=== PATIENT | female | born 1960 | race Caucasian/White ===

== ENCOUNTER 2017-07-14 17:25 | Emergency (ER) | payer BC ==
--- OUTSIDE RECORDS SUMMARY | 2017-07-14 18:06 | XMS REPORT | Summary of Care ---
:1960 Author Organization [facility] Address [address] [place] [address] Care Team Providers Name Role Phone Hitesh Martines Primary Care Physician Encounter Date(s): 06/03/17 - 06/03/17 [facility] [address], [address] [place], [place] [address] Discharge Disposition: 01 Discharged to Home or Self Care Attending Physician: Jeffery Mathis MD Referring Physician: Jeffery Mathis MD Vital Signs Most recent to oldest [Reference Range]: 1 Peripheral Pulse Rate [60-100 bpm] 82 bpm (06/03/17 2:38 PM) Blood Pressure [90-130/60-90 mmHg] 127/79mmHg (06/03/17 2:38 PM) Mean Arterial Pressure, Cuff 95 mmHg (06/03/17 2:38 PM) Most recent to oldest [Reference Range]: 1 Height/Length Estimated 150 cm (06/03/17 2:38 PM) Weight Estimated 58 kg (06/03/17 2:38 PM) BSA Estimated 1.55 m2 (06/03/17 2:38 PM) Body Mass Index Estimated 25.78 kg/m2 (06/03/17 2:38 PM) Problem List No data available for this section Allergies, Adverse Reactions, Alerts Substance Reaction Severity Status Augmentin rash Active oxyCODONE rash Active Relafen rash Active Medications clindamycin 300 mg oral capsule 1 cap(s), Oral, BID, # 20 cap(s), 0 Refill(s), Start Date: 01/21/16 16:20:00 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 , Pharmacy: [facility] Start Date: 01/21/16 Stop Date: 03/30/17 Status: CompletedDiflucan 200 mg oral tablet 1 tab(s), Oral, Daily, # 1 tab(s), 0 Refill(s), Start Date: 01/21/16 16:19:00 PILL COATER, [facility] Start Date: 01/21/16 Stop Date: 03/30/17 Status: Completedibuprofen 200 mg oral capsule 2 cap(s), Oral, q4hr, PRN for fever, # 120 cap(s), 0 Refill(s), Start Date: 16:27:00 CDT Start Date: 05/21/17 Status: Orderednystatin 100,000 units/mL oral suspension 5 mL, Oral, QID, swish and swallow, # 140 mL, 0 Refill(s), Start Date: 01/21/16 16:19:00 PILL COATER, Pharmacy: [facility] Special Instructions: swish and swallow Start Date: 01/21/16 Stop Date: 03/30/17 Status: CompletedPennsaid 2% topical solution 2 pump, Topical, BID, Please call patient @ [phone] wash hands before and after application, # 112 gm, 0 Refill(s), Start Date: 04/03/17 15:45:28 CDT , Pharmacy: [facility] [place], [place] Special Instructions: Please call patient @ [phone] wash hands before and after application Start Date: 04/03/17 Status: OrderedPennsaid 2% topical solution 2 pump, Topical, BID, Please call patient @ [phone] wash hands before and after application, # 112 gm, 0 Refill(s), Start Date: 04/02/17 16:57:00 CDT , Pharmacy: [facility] [place], [place] Special Instructions: Please call patient @ [phone] wash hands before and after application Start Date: 04/02/17 Stop Date: 04/03/17 Status: CompletedSuprep Bowel Prep Kit oral liquid 1 kit(s), Oral, ONETIME, # 1 kit(s), 0 Refill(s), Start Date: 05/22/17 11:53:00 CDT, Pharmacy: [id number] Start Date: 05/22/17 Status: OrderedTylenol 325 mg oral capsule 2 cap(s), Oral, TID, PRN, 0 Refill(s), Start Date: 05/21/17 16:27:00 CDT Special Instructions: PRN Start Date: 05/21/17 Status: OrderedZyrTEC 10 mg oral tablet 1 tab(s), Oral, Daily, # 30 tab(s), 0 Refill(s), Start Date: 05/21/17 16:27:00 CDT Start Date: 05/21/17 Status: Ordered Results No data available for this section Immunizations No data available for this section Procedures Procedure Date Related Diagnosis Body Site Hysterectomy Tonsillectomy Social History No data available for this section Assessment and Plan No data available for this section
--- OUTSIDE RECORDS SUMMARY | 2017-07-14 18:06 | XMS REPORT | Summary of Care ---
:1960 Author Organization [facility] Address [address] [place] [address] [address] [place] [address] Care Team Providers Name Role Phone Hitesh Martines Primary Care Physician Encounter Date(s): 05/21/17 - 05/21/17 [facility] [address] [place] [address] [address] [place] [address]- Discharge Diagnosis: Diarrhea Discharge Diagnosis: Nausea Discharge Diagnosis: Vomiting Discharge Diagnosis: Family history of colon cancer Discharge Diagnosis: Change in bowel habit Discharge Disposition: 01 Discharged to Home or Self Care Attending Physician: Varghese Vazquez DO Referring Physician: Varghese Vazquez DO Vital Signs Most recent to oldest [Reference Range]: 1 Peripheral Pulse Rate [60-100 bpm] 73 bpm (05/21/17 4:25 PM) Blood Pressure [90-130/60-90 mmHg] 111/69mmHg (05/21/17 4:25 PM) Mean Arterial Pressure, Cuff 83 mmHg (05/21/17 4:25 PM) Most recent to oldest [Reference Range]: 1 Height/Length Measured 150 cm (05/21/17 4:25 PM) Height/Length Estimated 150 cm (05/21/17 4:25 PM) Weight Estimated 58.6 kg (05/21/17 4:25 PM) Weight Dosing 58.6 kg (05/21/17 4:25 PM) Weight Measured 58.6 kg (05/21/17 4:25 PM) BSA Measured 1.53 m2 (05/21/17 4:25 PM) BSA Estimated 1.56 m2 (05/21/17 4:25 PM) Body Mass Index Measured 26.04 kg/m2 (05/21/17 4:25 PM) Body Mass Index Estimated 26.04 kg/m2 (05/21/17 4:25 PM) Problem List No data available for this section Allergies, Adverse Reactions, Alerts Substance Reaction Severity Status Augmentin rash Active oxyCODONE rash Active Relafen rash Active Medications clindamycin 300 mg oral capsule 1 cap(s), Oral, BID, # 20 cap(s), 0 Refill(s), Start Date: 01/21/16 16:20:00 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 Special Instructions: swish and swallow Start Date: 01/21/16 Stop Date: 03/30/17 Status: CompletedPennsaid 2% topical solution 2 pump, Topical, BID, Please call patient @ [phone] wash hands before and after application, # 112 gm, 0 Refill(s), Start Date: 04/03/17 15:45:28 CDT , Pharmacy: [facility], [place], [place] Special Instructions: Please call patient @ [phone] wash hands before and after application Start Date: 04/03/17 Status: OrderedPennsaid 2% topical solution 2 pump, Topical, BID, Please call patient @ [phone] wash hands before and after application, # 112 gm, 0 Refill(s), Start Date: 04/02/17 16:57:00 CDT , Pharmacy: [facility], [place], [place] Special Instructions: Please call patient @ [phone] wash hands before and after application Start Date: 04/02/17 Stop Date: 04/03/17 Status: CompletedTylenol 325 mg oral capsule 2 cap(s), Oral, [...]
--- OUTSIDE RECORDS SUMMARY | 2017-07-14 18:07 | XMS REPORT | Summary of Care ---
:1960 Author Organization [facility] Address [address] [place] [address] Care Team Providers Name Role Phone Hitesh Martines Primary Care Physician Encounter Date(s): 03/30/17 - 03/30/17 [facility] [address], [address] [place], [place] [address] Discharge Diagnosis: Posterior tibial tendinitis of left leg Discharge Disposition: 01 Discharged to Home or Self Care Attending Physician: Jeffery Mathis MD Referring Physician: Jeffery Mathis MD Vital Signs Most recent to oldest [Reference Range]: 1 Peripheral Pulse Rate [60-100 bpm] 81 bpm (03/30/17 3:10 PM) Blood Pressure [90-130/60-90 mmHg] 125/72mmHg (03/30/17 3:10 PM) Mean Arterial Pressure, Cuff 90 mmHg (03/30/17 3:10 PM) Most recent to oldest [Reference Range]: 1 Height/Length Estimated 150 cm (03/30/17 3:10 PM) Weight Estimated 57 kg (03/30/17 3:10 PM) BSA Estimated 1.54 m2 (03/30/17 3:10 PM) Body Mass Index Estimated 25.33 kg/m2 (03/30/17 3:10 PM) Problem List No data available for this section Allergies, Adverse Reactions, Alerts Substance Reaction Severity Status Augmentin rash Active oxyCODONE rash Active Relafen rash Active Medications clindamycin 300 mg oral capsule 1 cap(s), Oral, BID, # 20 cap(s), 0 Refill(s), Start Date: 01/21/16 16:20:00 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 Special Instructions: swish and swallow Start Date: 01/21/16 Stop Date: 03/30/17 Status: Completed Results No data available for this section Immunizations No data available for this section Procedures No data available for this section Social History No data available for this section Assessment and Plan No data available for this section
--- OUTSIDE RECORDS SUMMARY | 2017-07-14 18:07 | XMS REPORT | Summary of Care ---
:1960 Author Organization [facility] Care Team Providers Name Role Phone Hitesh Martines Primary Care Physician Encounter Date(s): 06/01/17 - 06/01/17 [place] [id number] Discharge Disposition: 01 Discharged to Home or Self Care Attending Physician: Varghese Vazquez DO Admitting Physician: Varghese Vazquez DO Vital Signs No data available for this section Problem List No data available for this section Allergies, Adverse Reactions, Alerts Substance Reaction Severity Status Augmentin rash Active oxyCODONE rash Active Relafen rash Active Medications clindamycin 300 mg oral capsule 1 cap(s), Oral, BID, # 20 cap(s), 0 Refill(s), Start Date: 01/21/16 16:20:00 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 , 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: [facility] Start Date: 01/21/16 Stop Date: 03/30/17 Status: CompletedDiflucan 200 mg oral tablet 1 tab(s), Oral, Daily, # 1 tab(s), 0 Refill(s), Start Date: 01/21/16 16:19:00 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, Pharmacy: [facility] Start Date: 01/21/16 Stop Date: 03/30/17 Status: Completedibuprofen 200 mg oral capsule 2 cap(s), Oral, q4hr, PRN for fever, # 120 cap(s), 0 Refill(s), Start Date: 16:27:00 CDT Start Date: 05/21/17 Status: Orderednystatin 100,000 units/mL oral suspension 5 mL, Oral, QID, swish and swallow, # 140 mL, 0 Refill(s), Start Date: 01/21/16 16:19:00 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, Pharmacy: [facility] Special Instructions: swish and swallow Start Date: 01/21/16 Stop Date: 03/30/17 Status: CompletedPennsaid 2% topical solution 2 pump, Topical, BID, Please call patient @ [phone] wash hands before and after application, # 112 gm, 0 Refill(s), Start Date: 04/03/17 15:45:28 CDT , [place] [facility] Special Instructions: Please call patient @ [phone] wash hands before and after application Start Date: 04/03/17 Status: OrderedPennsaid 2% topical solution 2 pump, Topical, BID, Please call patient @ [phone] wash hands before and after application, # 112 gm, 0 Refill(s), Start Date: 04/02/17 16:57:00 CDT , Pharmacy: [facility] [place] [facility] Special Instructions: Please call patient @ [phone] wash hands before and after application Start Date: 04/02/17 Stop Date: 04/03/17 Status: CompletedSuprep Bowel Prep Kit oral liquid 1 kit(s), Oral, ONETIME, # 1 kit(s), 0 Refill(s), Start Date: 05/22/17 11:53:00 CDT, Pharmacy: [id number] Start Date: 05/22/17 Status: OrderedTylenol 325 mg oral capsule 2 cap(s), Oral, TID, PRN, 0 Refill(s), Start Date: 05/21/17 16:27:00 CDT Special Instructions: PRN Start Date: 05/21/17 Status: OrderedZyrTEC 10 mg oral tablet 1 tab(s), Oral, Daily, # 30 tab(s), 0 Refill(s), Start Date: 05/21/17 16:27:00 CDT Start Date: 05/21/17 Status: Ordered Results Patient Viewable Results Most recent to oldest [Reference Range]: 1 WBC [4.8-10.8 thou/mm3] 8.7 thou/mm3 (06/01/17 1:21 PM) RBC [4.20-5.40 Mil/mm3] 5.21 Mil/mm3 (06/01/17 1:21 PM) Hgb [12.0-16.0 g/dL] 15.3 g/dL (06/01/17 1:21 PM) Hct [37.0-47.0 %] 45.5 % (06/01/17 1:21 PM) MCV [80.0-94.0 fL] 87.3 fL (06/01/17 1:21 PM) MCH [25.0-38.0 pg/cell] 29.4 pg/cell (06/01/17 1:21 PM) MCHC [31.0-37.0 g/dL] 33.6 g/dL (06/01/17 1:21 PM) RDW [1.0-48.0 fL] 41.1 fL (06/01/17 1:21 PM) Platelet [130-400 thou/mm3] 245 thou/mm3 (06/01/17 1:21 PM) Neutrophils % Auto [50.0-75.0 %] 64.3 % (06/01/17 1:21 PM) Immature Granulocyte Auto [0.1-2.0 %] 0.1 % (06/01/17 1:21 PM) Lymphocytes % Auto [15.0-41.0 %] 27.7 % (06/01/17 1:21 PM) Monocytes % Auto [2.0-10.0 %] 6.8 % (06/01/17 1:21 PM) Eosinophils % Auto [0.0-6.0 %] 0.9 % (06/01/17 1:21 PM) Basophil % Auto [0.0-1.0 %] 0.2 % (06/01/17 1:21 PM) Neutrophils Absolute [1.5-5.9 thou/mm3] 5.6 thou/mm3 (06/01/17 1:21 PM) Immature Gran Absolute [0.01-0.03 thou/mm3] 0.01 thou/mm3 (06/01/17 1:21 PM) Lymphocytes Absolute [1.5-4.0 thou/mm3] 2.4 thou/mm3 (06/01/17 1:21 PM) Monocytes Absolute [0.0-0.9 thou/mm3] 0.6 thou/mm3 (06/01/17 1:21 PM) Eosinophil Absolute [0.0-0.7 thou/mm3] 0.1 thou/mm3 (06/01/17 1:21 PM) Basophil Absolute [0.0-0.2 thou/mm3] 0.0 thou/mm3 (06/01/17 1:21 PM) Sodium Lvl [135-144 mEq/L] 143 mEq/L (06/01/17 1:21 PM) Potassium Lvl [3.3-4.8 mEq/L] 4.2 mEq/L (06/01/17 1:21 PM) Chloride Lvl [98-107 mEq/L] 104 mEq/L (06/01/17 1:21 PM) Bicarbonate Lvl [22-30 mmol/L] 27 mmol/L (06/01/17 1:21 PM) Anion Gap [10.0-20.0] 16.2 (06/01/17 1:21 PM) Glucose Lvl [70-108 mg/dL] 92 mg/dL (06/01/17 1:21 PM) BUN [7-21 mg/dL] 9 mg/dL (06/01/17 1:21 PM) Creatinine Lvl [0.50-1.20 mg/dL] 0.62 mg/dL (06/01/17 1:21 PM) BUN/Creat Ratio 14.5 *NA* (06/01/17 1:21 PM) eGFR AA [>=60] >60 (06/01/17 1:21 PM) eGFR FRANCISCO [>=60] >60 (06/01/17 1:21 PM) Calcium Lvl [8.6-10.2 mg/dL] 9.3 mg/dL (06/01/17 1:21 PM) Total Protein [6.4-8.3 g/dL] 6.8 g/dL (06/01/17 1:21 PM) Albumin Lvl [3.5-5.2 g/dL] 4.3 g/dL (06/01/17 1:21 PM) Globulin 2.5 *NA* (06/01/17 1:21 PM) A/G Ratio [0.9-1.8] 1.7 (06/01/17 1:21 PM) Bilirubin Total [0.1-1.0 mg/dL] 0.4 mg/dL (06/01/17 1:21 PM) Alkaline Phosphatase [39-129 unit/L] 105 unit/L (06/01/17 1:21 PM) AST [0-39 unit/L] 15 unit/L (06/01/17 1:21 PM) ALT [0-40 unit/L] 13 unit/L (06/01/17 1:21 PM) Lipase Lvl [13-60 unit/L] 33 unit/L (06/01/17 1:21 PM) C Reactive Protein [0.0-0.4 mg/dL] 0.1 mg/dL (06/01/17 1:21 PM) Estimated Creatinine Clearance 80.95 mL/min (06/01/17 1:55 PM) Immunizations No data available for this section Procedures Procedure Date Related Diagnosis Body Site Hysterectomy Tonsillectomy Social History No data available for this section Assessment and Plan No data available for this section
[2017-07-14] MEDS ORDERED: SUCRALFATE 1 G/10 ML UDC PO ONE (18:08)
[2017-07-14] MEDS ORDERED: LIDOCAINE HCL 20 ML UDC PO ONE (18:08)
[2017-07-14] MEDS ORDERED: MAG HYDROX/ALUMINUM HYD/SIMETH 30 ML UDC PO ONE (18:08)
[2017-07-14 18:18] LABS: Hematocrit 44.5 % (37.0-47.0); Hemoglobin 14.8 gm/dL (12.5-16.0); Mean Cell Volume 86.2 fl (78-100); Mean Corpuscular Hemoglobin 28.7 pg (27-31); Mean Corpuscular Hgb Conc 33.3 g/dl (32-36); Mean Platelet Volume 10.7 fl (6.0-9.5); Neutrophil # 8.8 K/mm3 (1.3-6.0); Neutrophil % 68.6 % (42-75.0); Platelet Count 275 K/mm3 (150-450); Red Blood Count 5.16 M/mm3 (4.2-5.4); Red Cell Distribution Width 12.2 % (11.5-14.0); White Blood Count 12.8 K/mm3 (4.0-10.5)
--- NOTE | 2017-07-14 18:21 | ERNOTE ---
Medical Problem HPI - Narrative Date of Service: 07/14/17 - General Chief Complaint: Nausea/Vomiting Time Seen by Provider: 07/14/17 17:46 Source: patient Exam Limitations: no limitations - Immun/Allergies/Home Medications Immunizations: IMMUNIZATION HX Immunizations Up to Date No History of Influenza Vaccine No Hx Pneumococcal Vaccination Yes Allergies/Adverse Reactions: Allergies adhesive Allergy (Mild, Verified 07/14/17 17:43) INFLAMMATION, IRRITATION latex Allergy (Mild, Verified 07/14/17 17:43) INFLAMMATION, IRRITATION nabumetone [From Relafen] Allergy (Mild, Verified 07/14/17 17:43) Hives amoxicillin [Amoxicillin] Adverse Reaction (Mild, Verified 07/14/17 17:43) GASTRIC PAIN oxycodone [Oxycodone] Adverse Reaction (Mild, Verified 07/14/17 17:43) Itching Home Medications: HOME MEDICATIONS Cholecalciferol (Vitamin D3) [Vitamin D-3] 2,000 unit PO DAILY 02/19/15 [Last Taken Unknown] EPINEPHrine [Epipen] 0.3 mg IM ONCE PRN 02/19/15 [Last Taken Unknown] Dicyclomine HCl [Bentyl] 10 mg PO TID #30 capsule 07/14/17 [Last Taken Unknown] Ondansetron [Zofran Odt] 4 mg PO Q6H PRN #20 tab 07/14/17 [Last Taken Unknown] Pravastatin Sodium 40 mg PO DAILY 07/14/17 [Last Taken Unknown] - History of Present History Narrative: Pt. comes in with c/o nausea and bloating for 3 days. Pt. states that she also had diarrhea for two days but it is improved now. Pt. denies any SOB, CP, fever but does state that this started after she and her ate wolof food on Thursday. Pt. denies any alleviating or aggravating factors despite taking pepto bismol. Review of Systems - Review of Systems Constitutional: Present: no symptoms reported. Absent: recent illness, fever, chills, weakness, fatigue, malaise EYE: Present: no symptoms reported ENT: Present: no symptoms reported Respiratory: Present: no symptoms reported. Absent: shortness of breath, cough , wheezing Cardiology: Present: no symptoms reported. Absent: chest pain, palpitations, edema Gastrointestinal/Abdominal: Present: nausea, abdominal pain - diffuse bloating pain. Absent: vomiting, diarrhea, constipation Genitourinary: Present: no symptoms reported Musculoskeletal: Present: no symptoms reported. Absent: back pain, joint pain Skin: Present: no symptoms reported. Absent: rash, change in color Neurological: Present: no symptoms reported. Absent: headache, dizziness/light- headedness, numbness, tingling All Other Systems: All systems neg except as marked - Patient's Past Medical History Patient History - Medical: No pertinent hx Patient History - Cardiac/Respiratory: COPD Patient History - Cancer: No Hx of Cancer, Other Patient History - Surgical Procedures: Hysterectomy, T & A, Other Patient History - Other: None LMP (females 10-50): 2007 - Social History Living Situations: home Psych History: No pertinent hx Smoking Status: Never smoker Alcohol Use: none Drug Use: none - Immunizations Immunizations Up to Date: No Hx Pneumococcal Vaccination: Yes History of Influenza Vaccine: No Physical Exam - Physical Exam General Appearance: Present: wd/wn, alert, no apparent distress Head Exam: Present: normal inspection, no evidence of injury Eye Exam: Normal inspection: bilateral, PERRL: bilateral, EOMI: bilateral Ears, Nose, Throat: Present: normal ENT inspection, normal pharynx Neck: Present: normal inspection, nontender. Absent: lymphadenopathy (R), lymphadenopathy (L) Respiratory: Present: no respiratory distress, normal breath sounds, no accessory muscle use, chest nontender, lungs clear Cardiovascular/Chest: Present: regular rate, rhythm, no murmur, normal peripheral pulses Gastrointestinal/Abdominal: Present: normal bowel sounds, nontender, no organomegaly, distended Back Exam: Present: normal inspection, no CVA tenderness Neurological Exam: Present: alert, oriented, normal mood/affect, no motor/ sensory deficits Skin Exam: Present: normal color, warm/dry. Absent: pallor, skin rash ED Progress - Results and Orders Patient's Lab Results:: I have reviewed the patient's lab results. - Vital Signs Patient's Vital Signs:: I have reviewed the patient's vital signs. Vital Signs: Vital Signs 07/14/17 17:32 Temperature 36.9 C Pulse Rate 69 Respiratory 17 Rate Blood Pressure 122/60 O2 Sat by Pulse 99 Oximetry - Progress/Reassessment Chief Complaint: Nausea/Vomiting Departure - Departure Clinical Impression: Acute gastroenteritis Disposition: Home self-care Condition: Good Instructions: Viral Gastroenteritis, Adult, [id number] Additional Instructions: Please increase fluid and food intake even if you don't feel like eating or drinking. Please follow up with primary provider in 2-3 days. Referrals: Hitesh Martines MD [Primary Care Provider] - Prescriptions: Dicyclomine HCl [Bentyl] 10 mg PO TID #30 capsule Ondansetron [Zofran Odt] 4 mg PO Q6H PRN #20 tab PRN Reason: Nausea
[2017-07-14 18:33] LABS: Albumin * 4.1 gm/dl (3.4-5.0); Anion Gap 14.4 mmol/L (6.8-13.8); BUN/Creatinine Ratio 15.1 (9.0-21.6); Bilirubin, Total 0.4 mg/dL (0.0-1.1); Calcium * 9.4 mg/dL (7.9-10.9); Carbon Dioxide 27.9 mmol/L (24-32.6); Potassium 4.3 mmol/L (3.4-4.6)
[2017-07-14 18:33] LABS: Urine Bilirubin Negative (NEGATIVE); Urine Blood Negative /ul (NEGATIVE); Urine Ketone Negative (NEGATIVE); Urine Nitrite Negative (NEGATIVE); Urine Protein Negative (NEGATIVE); Urine Specific Gravity 1.015 SP.GR. (1.005-1.010); Urine Urobilinogen Normal (NORMAL)
[2017-07-14 18:57] LABS: Urine Appearance Clear; Urine Bacteria TRACE; Urine Color Yellow; Urine RBC None Seen /hpf (0-5); Urine WBC 0-5 /hpf (0-5)
[2017-07-14 19:15] VITALS: BP 97/66
[2017-07-14] MEDS ORDERED: DICYCLOMINE HCL 10 MG/ML AMPUL IM ONE ×2 (19:18→19:46)
== END 2017-07-14 19:52 | disposition home or self-care (01) ==
LOC: ER 17:25
DX: K52.9 Noninfective gastroenteritis and colitis, unspecified (principal)